=== PATIENT | male | born 1975 | race Caucasian/White ===

== ENCOUNTER → 2016-07-30 | Outpatient (CLI) | payer OTHER | LOC: LAB SRH 10:05 | DX: E23.0 Hypopituitarism (principal); M54.9 Dorsalgia, unspecified; M54.16 Radiculopathy, lumbar region; I10 Essential (primary) hypertension; E66.01 Morbid (severe) obesity due to excess calories; Z83.3 Family history of diabetes mellitus; F11.21 Opioid dependence, in remission | CPT/HCPCS: 90074; 93146 ==